=== PATIENT | male | born 2000 | race Caucasian/White ===

== ENCOUNTER 2025-08-14 13:22 | Outpatient (OUT) | payer OTHER, SELFPAY | END 2025-08-14 13:23 | disposition home or self-care (01) | LOC: LAB 13:28 | PROVIDERS: PCP Family Medicine; Visit Provider Family Medicine | DX: Z01.84 Encounter for antibody response examination (principal) | CPT/HCPCS: 36415; 86317 ==

== ENCOUNTER 2025-11-12 12:49 | Outpatient (OUT) | payer OTHER, SELFPAY ==
--- OUTSIDE RECORDS SUMMARY | 2024-11-12 09:30 | XMS_ITS ---
Author Organization The [facility] in [place] Address [address] [place] [address] Care Team Providers Care Dining Room Host/Hostess Name Role Phone Ashwin Lance DO Primary Care Provider Unavailab Celine Ward Unavailable [phone] REASON FOR VISIT MD Goncalves PT Hem Encounters Encounter Location Date Provider Diagnosis [address] [address] 11/12/2024 Celine Gonzalez Plan Of Treatment Next Appt Details Provider Name:Ava Gates , 11/13/2025 03:00:00 PM, [address] [place] [address], [address], Progress Notes * Brett PALENCIA NDOB:1999 (25 yo M)Acc No.[id number]:11/12/2024 UNLOCKED PROGRESS NOTE Progress Notes Patient: Marisol HAIDER Brett Landry :?Celine Phillips M.D.:2000???Age:24 Y ???Sex:MaleDate:4Phone:[phone]:[address] [place], [place]-[address]Pcp:Ashwin Lance DO Subjective: * Chief Complaints: * 1 . MD Goncalves PT Hem. * Medical History: Objective: * Vitals: Assessment: Plan: * Treatment: * * Electronic signature of Celine Gonzalez MD, [id number] on 11/12/2025 at 12:54 PM ESTSign off status: PendingVisit Status:?VOICEMSG (Voice) * Provider: Whitney Phillips M.D. Date: 01/13/2024 Generated for Printing/Faxing/eTransmitting on:?11/12/2025 12:54 PM EST
--- OUTSIDE RECORDS SUMMARY | 2024-11-12 11:15 | XMS_ITS ---
Author Organization The [facility] in [place] Address [address] [place] [address] Care Team Providers Care Process Engineering Intern Name Role Phone Ashwin Lance DO Primary Care Provider Unavailab le Provider, Lab Unavailable [phone] REASON FOR VISIT jma Encounters Encounter Location Date Provider Diagnosis [facility] [address] [place] [address] 11/12/2024 Lab Provider Plan Of Treatment Next Appt Details Provider Name:Ava Whitney Kody , 11/13/2025 03:00:00 PM, [address] [place] [address], [address], Progress Notes * Brett PALENCIA NDOB:1999 (25 yo M)Acc No.[id number]:11/12/2024 UNLOCKED PROGRESS NOTE Progress Note Patient: Brett HENRY :?Lab ProviderDOB:2000???Age:24 Y???Sex: MaleDate:4Phone:[phone]:[address] [place], [place]-[address]Pcp:Abigail Greene In:04:14 PM ESTCheck Out:04:17 PM EST Subjective: * Chief Complaints: * 1 . Jma. * Medical History: Objective: * Vitals: Assessment: Plan: * Treatment: * * Electronic signature of Lab Provider on 11/12/2025 at 12:54 PM ESTSign off status: PendingVisit Status:?CHK (Check Out) * Provider: Jack mcarthur Provider Date: 01/13/2024 Generated for Printing/Faxing/eTransmitting on:?11/12/2025 12:54 PM EST
--- OUTSIDE RECORDS SUMMARY | 2024-12-03 10:00 | XMS_ITS ---
Author Organization The [facility] in [place] Address [address] [place] [address] Care Team Providers Care Program Attendant Name Role Phone Ashwin Lacne DO Primary Care Provider Unavailab Celine Ward Unavailable [phone] REASON FOR VISIT MD TELEHEALTH Encounters Encounter Location Date Provider Diagnosis [address] [address] 12/03/2024 Celine Gonzalez Plan Of Treatment Next Appt Details Provider Name:Ava Gates , 11/13/2025 03:00:00 PM, [address] [place] [address], [phone], Progress Notes * Brett PALENCIA NDOB:1999 (25 yo M)Acc No.[id number]:12/03/2024 UNLOCKED PROGRESS NOTE Progress Notes Patient: Marisol HAIDER Brett Landry :?Celine Phillips M.D.:2000???Age:24 Y ???Sex:MaleDate:12/03/2024Phone:[phone]:[address] [place], [place]-[address]Pcp:Ashwin Lance DO Subjective: * Chief Complaints: * 1 . TELEHEALTH. * Medical History: Objective: * Vitals: Assessment: Plan: * Treatment: * * Electronic signature of Celine Gonzalez MD, [id number] on 11/12/2025 at 12:57 PM ESTSign off status: PendingVisit Status:?PEN (Pending) * Provider: Whitney Phillips M.D. Date: 0 12/03/2024 Generated for Printing/Faxing/eTransmitting on:?11/12/2025 12:57 PM EST
--- OUTSIDE RECORDS SUMMARY | 2025-11-11 10:00 | XMS_ITS ---
Author Organization The [facility] in [place] Address [address] [place] [address] Care Team Providers Care Learning Developer Name Role Phone Ashwin Lance DO Primary Care Provider Unavailab Celine Ward Unavailable [phone] REASON FOR VISIT MD Encounters Encounter Location Date Provider Diagnosis [address] [address] 11/11/2025 Celine Gonzalez Plan Of Treatment Next Appt Details Provider Name:Ava Gates , 11/13/2025 03:00:00 PM, [address] [place] [address], [address], Progress Notes * Brett PALENCIA NDOB:1999 (25 yo M)Acc No.[id number]:11/11/2025 UNLOCKED PROGRESS NOTE Progress Notes Patient: Marisol HAIDER Brett Landry :?Celine Phillips M.D.:2000???Age:25 Y ???Sex:MaleDate:11/11/2025Phone:[phone]:[address] [place], [place]-[address]Pcp:Ashwin Lance DO Subjective: * Chief Complaints: * 1 . MD. * Medical History: Objective: * Vitals: Assessment: Plan: * Treatment: * * Electronic signature of Celine Gonzalez MD, [id number] on 11/12/2025 at 12:54 PM ESTSign off status: PendingVisit Status:?CANC (Cancelled) * Provider: Whitney Phillips M.D. Date: 1 01/12/2025 Generated for Printing/Faxing/eTransmitting on:?11/12/2025 12:54 PM EST
--- OUTSIDE RECORDS SUMMARY | 2025-11-12 12:54 | XMS_ITS | Patient Health Record ---
Author Organization The [facility] in [place] Address [address] [place] [address] Care Team Providers Care Press Feeder Name Role Phone Ashwin Lance DO Primary Care Provider Unavailab le Provider, Lab Unavailable [phone] Celine Gonzalez Unavailable [phone] Results Component Value Reference Range Notes COPY RECEIVED FROM: (Not yet reviewed by provider) Interpretation: Performing Lab: Notes/Report: FASTING:UNKNOWN FASTING: UNKNOWN COPY RECEIVED FROM: [address] [place] [address] [facility] [address] COPY RECEIVED FROM: (Not yet reviewed by provider) Interpretation: Performing Lab: Notes/Report: FASTING:UNKNOWN FASTING: UNKNOWNCOPY RECEIVED FROM: [address] [place] [address] [facility] LUPUS ANTICOAGULANT (Not yet reviewed by provider) Interpretation: Performing Lab:СВЕТЛАНА, [facility] [address] [facility], [facility] CenterXswwGU[address] Avelino Irwin Notes/Report: FASTING:UNKNOWN FASTING: UNKNOWNLUPUS ANTICOAGULANTNOT DETECTED (This link is being provided for informational/ For more information on this test, go to: educational purposes only.) following test results: http://[employer].Al[employer]/faq/IPW41c4 A Lupus Anticoagulant is not detected. This interpretation is based on the PTT-LA TJQBHX25< OR = 40 secDRVVT XMWQOO01< OR = 45 arjYSZX-2-MXINGPUWZXWS IGG,IGA,and IGM (Not yet reviewed by provider) Interpretation: Performing Lab:СВЕТЛАНА, [facility] [address], [place] JiangJqdcBD[address] Avelino Irwin Notes/Report: FASTING:UNKNOWN FASTING: UNKNOWNB2 GLYCOPROTEIN I (IGG)AB<2.0 [facility] immunological classification criteria for clinical event (e.g. arterial or venous thrombosis, drug therapy or aging. b2GPI antibodies greater than the 99th percentile; or educational purposes only.) Value Interpretation For additional information, please refer to http://[employer].AUPEO!.Ooyala/faq/FIF258 APS criteria. Low level antiphospholipid antibodies before retesting to confirm antibody persistence. > or = 20.0 Antibody detected antiphospholipid antibodies (IgM, IgG Cardiolipin or (This link is being provided for informational/ a lupus anticoagulant). International consensus The antiphospholipid antibody syndrome (APS) is a systemic lupus erythematosus (SLE) include testing for ----- isotype IgA, which has yet to be incorporated into < 20.0 Antibody not detected guidelines for APS suggest waiting at least 12 weeks clinical-pathologic correlation that includes a may sometimes be detected in the setting of infection, The [facility] [employer] [facility] morbidity) and persistent positive B2 GLYCOPROTEIN I (IGM)AB<2.0 The [facility] [employer] [facility] a lupus anticoagulant). International consensus antiphospholipid antibodies (IgM, IgG Cardiolipin or > or = 20.0 Antibody detected may sometimes be detected in the setting of infection, http://education.Alcy[employer] Resources/faq/TLT973 Value Interpretation For additional information, please refer to guidelines for APS suggest waiting at least 12 weeks isotype IgA, which has yet to be incorporated into b2GPI antibodies greater than the 99th percentile; or clinical event (e.g. arterial or venous thrombosis, (This link is being provided for informational/ drug therapy or aging. ----- Clinics immunological classification criteria for The antiphospholipid antibody syndrome (APS) is a APS criteria. Low level antiphospholipid antibodies before retesting to confirm antibody persistence. morbidity) and persistent positive clinical-pathologic correlation that includes a educational purposes only.) systemic lupus erythematosus (SLE) include testing for < 20.0 Antibody not detected B2 GLYCOPROTEIN I (IGA)AB<2.0 b2GPI antibodies greater than the 99th percentile; or The antiphospholipid antibody syndrome (APS) is a educational purposes only.) ----- APS criteria. Low level antiphospholipid antibodies drug therapy or aging. Clinics immunological classification criteria for morbidity) and persistent positive before retesting to confirm antibody persistence. http://education.[employer]/faq/KSV803 clinical-pathologic correlation that includes a < 20.0 Antibody not detected systemic lupus erythematosus (SLE) include testing for a lupus anticoagulant). International consensus The [facility] Lupus [employer] Collaborating (This link is being provided for informational/ antiphospholipid antibodies (IgM, IgG Cardiolipin or > or = 20.0 Antibody detected For additional information, please refer to Value Interpretation may sometimes be detected in the setting of infection, guidelines for APS suggest waiting at least 12 weeks clinical event (e.g. arterial or venous thrombosis, isotype IgA, which has yet to be incorporated into ANTI - CARDIOLIPIN (ANTIPHOSPHOLIPID) ,IGG/IGA/IGM (Not yet reviewed by provider) Interpretation: Performing Lab:[facility], [address] [place], [address] Notes/Report: [facility]: [facility] [id number], IgG1.8(10.0 - 40.0) U/mLACA, IgA9.9(14.0 - 20.0) U/mLACA, IgM1.1(10.0 - 40.0) U/mL Reason For Referral No Information Encounters Encounter Location Date Provider Diagnosis [facility] [address] [place] [address] 11/12/2024 Celine Gonzalez [facility] [place] [address]/06/2025[facility] [address] [place] [address]/Lab Provider Plan Of Treatment Pending Test Test Name Order Date ANTI - CARDIOLIPIN (ANTIPHOSPHOLIPID) ,I GG/IGA/IGM 11/12/2024 WOCG-7-GEHWOOAYEDIE IGG,IGA,and IGM 10/28 LUPUS ANTICOAGULANT 11/12/2024 COPY RECEIVED FROM: 11/12/2024 COPY RECEIVED FROM: 11/12/2024 Next Appt Details Provider Name:Moshehector Devonte Gates , 11/13/2025 03:00:00 PM, [address] [place] [address], [place], [address], Insurance Providers Payer Name Payer Address Payer Phone Subscriber Number Group Number Insured Name Patient Relationship to Insured Coverage Start Date Coverage End Date MMO [employer] [address] [place] [address] [phone] [id number] Brett Palencia Self - patient is the insured 4
--- OUTSIDE RECORDS SUMMARY | 2025-11-12 12:54 | XMS_ITS | Clinical Summary ---
Author Organization [facility] Dealised [facility] tem Address [id number] [address] [place] [address] Care Team Providers Care Watch And Clock Repair Clerk Name Role Phone Ashwin Lance DO Primary Care Provider [phone] Allergies No known active allergies Medications MedicationSigDispense QuantityRefillsLast FilledStart DateEnd DateStatus MULTIVITAMIN (MULTIPLE VITAMINS ORAL) Take 2 tablets by mouth in the morning.Active ibuprofen (ADVIL,MOTRIN) 400 mg tablet Take 1 tablet (400 mg total) by mouth every 6 (six) hours as needed for pain for up to 20 doses. 20 tablet 01/08/2018Active acidophilus-pectin, citrus 25 million cell -100 mg tablet Take 1 tablet by mouth daily with breakfast.Active omega-3 fatty acids-fish oil (FISH OIL) 300-1,000 mg capsule Take 2 capsules (2 g total) by mouth in the morning.Active Active Problems ProblemNoted DateDiagnosed DatePatellar nfvmdpigdaz42/14/2017Factor 5 Leiden mutation, heterozygousMTHFR (methylene THF reductase) deficiency and homocystinuriaHypercoagulability due to prothrombin II mutationCP (cerebral palsy) Overview (07/12/2017): RT SIDED Encounters DateTypeDepartmentCare CkbqPdruategrel35/16/2025 10:30 AM EDTOffice Visit [facility] [address] [place] [address] Fabiola Nina MD MTHFR (methylene THF reductase) deficiency and homocystinuria (Primary Dx); Hypercoagulability due to prothrombin II mutation; Factor 5 Leiden mutation, heterozygousfrom Last 3 Months Immunizations ImmunizationAdministration DatesNext AajCPpT9805/23/2007,04/05/2003IPV05/23/2007, 09/23/2003MMR05/23/2007Tdap05/23/2014 Family History Medical HistoryRelationNameCommentsOtherFatherCHADUNKNOWNCancerMaternal GrandfatherNo Known ProblemsMotherCHRISTINEOtherPaternal GrandmotherUNKNOWNNo Known ProblemsSisterAlaynaRelationNameStatusCommentsFatherCHADAliveMaternal GrandfatherAliveMaternal GrandmotherDeceasedMotherCHRISTINEAlivePaternal GrandfatherAlivePaternal GrandmotherDeceasedSisterAlaynaAlive Social History Tobacco UseTypesPacks/DayYears UsedDateSmoking Tobacco: NeverPassive Smoke Exposure: CurrentSmokeless Tobacco: Never Tobacco Cessation:Counseling Given: No Alcohol UseStandard Drinks/WeekCommentsYes0 (1 standard drink = 0.6 oz pure alcohol)soicalPHQ-2AnswerDate RecordedTotal Wirln1974ChildcareAnswerDate MgmxhtdjOhmaqtnvuBaaglcv77/12/2019EmploymentAnswerDate RecordedEmploymentUnknown 05/09/2019Hunger ScreeningAnswerDate RecordedWithin the past 12 months we worried whether our food would run out before we got money to buy more.Never True08/13/2025Within the past 12 months the food we bought just didn't last and we didn't have money to get more.Never True08/13/2025Purpose - LifeAnswerDate RecordedPurpose and direction in xgotHwwjaoc28/11/2021EducationAnswerDate RecordedWhat is the highest level of school you have completed or the highest degree you have received?Bachelor's degree (e.g., BA, AB, BS)04/16/2024Sex and Gender InformationValueDate RecordedSex Assigned at BirthNot on fileLegal Sex Male07/03/2015 12:00 PM EDTGender IdentityNot on fileSexual OrientationNot on fileOccupationIndustryJob Start DateJob End Datenot employed-studentNot on file Not on fileNot on file Last Filed Vital Signs Vital SignReadingTime TakenCommentsBlood Fzzgpdmb464/7408/13/2025 10:22 AM EDT after 3 attempts on each bcjmmruevXcxbk5694/16/2025 10:22 AM QZITnbzeagqdym34.6 ??C (97.9 ??F)01/08/2018 9:32 AM ESTRespiratory Tazw546601/08/2018 9:32 AM EST Oxygen Pwflbkbgeb07%01/08/2018 10:07 AM ESTInhaled Oxygen Concentration--Weight 98.8 kg (217 lb 13 oz)08/13/2025 10:22 AM UVKZpmjcm512.6 cm (5' 6 )08/13/2025 10:22 AM EDTBody Mass Index35.16008/13/2025 10:22 AM EDT Plan of Treatment Health MaintenanceDue DateLast DoneCommentsAdult BMI Follow Up Plan2019 Depression Vqjxxhgbl59/OVID-19 Vaccine ( - season) /, 04/14/2021Influenza Xorghwi95/, 10/16/2009dult BMI Olbnrcndw45/Tobacco Slijvusmr54/16/2026 08/13/2025DTaP,Tdap and Td Vaccines (8 - Td or Tdap), 05/23/2014, 05/23/2007, Additional history exists Medical Devices Not on file Insurance MemberSubscriberPlan / Payer (Effective 2015-Present)Name:Brett Palencia Relation to Subscriber:ChildName:CABRERA LARSON Date of :1977 Address: [address] [place] [address] Payer ID:Not on file Type:Not on file Address: [address] [place] [id number] MemberSubscriberPlan / Payer (Effective 2015-Present)Name:Brett Palencia Relation to Subscriber:ChildName:CABRERA LARSON Date of :1977 Address: [address] [place] [address] Payer ID:Not on file Type:Not on file Address: [address] [place] [id number] Care Teams Team MemberRelationshipSpecialtyStart DateEnd Date Ashwin Lnace DO [address] [place] [address] [facility]04/11/13
--- OUTSIDE RECORDS SUMMARY | 2025-11-12 12:56 | XMS_ITS | Clinical Summary ---
Author Organization [facility] Address [address] [place] [address] Care Team Providers Care Bee Producer Name Role Phone Unavailable Primary Care Provider Unavailabl e Social History Tobacco UseTypesPacks/DayYears UsedDateSmoking Tobacco: Never AssessedSex and Gender InformationValueDate RecordedSex Assigned at BirthNot on fileLegal Sex Male02/09/2023 7:25 PM EDTGender CjrepcirKaze15/15/2023 7:25 PM EDTSexual OrientationNot on file Last Filed Vital Signs Vital SignReadingTime TakenCommentsBlood Llrencfg523/7411/14/2018 12:00 PM EST Pulse--Temperature--Respiratory Rate--Oxygen Saturation--Inhaled Oxygen Concentration--Kfldat77.3 kg (161 lb 9.6 oz)11/14/2018 12:00 PM JXKFmzllz093.7 cm (5' 5.25 )11/14/2018 12:00 PM ESTBody Mass Index26.6911/14/2018 12:00 PM EST Plan of Treatment Not on file Insurance
--- OUTSIDE RECORDS SUMMARY | 2025-11-12 12:56 | XMS_ITS | Clinical Summary ---
Author Organization [facility] Address [address] [place] [address] Care Team Providers Care Business Manager [employer] Name Role Phone Girish Hsieh MD Primary Care Provider [phone] Medications MedicationSigDispense QuantityRefillsLast FilledStart DateEnd DateStatus VITAMIN B12 50MCG TABLET Take one(1) tablet daily.Active VITAMIN B6 50MG TABLET Take one(1) tablet daily.Active FOLIC ACID 20MG CAPSULE 2 1/2 tablets by mouth once nmsdz80301/15/2003Active Active Problems ProblemNoted DateDiagnosed DateUnspecified cerebral artery occlusion with cerebral himvymjynx56/07/2003Genetic anomalies of hvaflhphko99/07/2003 Social History Tobacco UseTypesPacks/DayYears UsedDateSmoking Tobacco: Never AssessedSex and Gender InformationValueDate RecordedSex Assigned at BirthNot on fileLegal Sex Male10/29/2012 10:01 AM ESTGender IdentityNot on fileSexual OrientationNot on file Last Filed Vital Signs Vital SignReadingTime TakenCommentsBlood Fsugvqcy160/7011/14/2003 12:16 PM EST Oqlwp41820/18/2003 12:16 PM ESTTemperature--Respiratory Rate--Oxygen Saturation 99%11/14/2003 12:16 PM ESTInhaled Oxygen Concentration--Fjqgdm84.8 kg (30 lb 6.8 oz)11/14/2003 12:16 PM RZHHgbuyt29.3 cm (2' 11.55 )11/14/2003 12:16 PM ESTBody Mass Index16.9311/14/2003 12:16 PM EST Plan of Treatment Health MaintenanceDue DateLast DoneCommentsPeds To Adult Transition Initial Srhxrpejwg77/01/2013Peds To Adult Transition Annual Fvngqcpptl68/01/2015HPV Vaccine (1 - Male 3-dose series)2016Anxiety Pglpgbanj53/01/2019Depression Lmkujfyhs16/01/2019HIV Okgkylfhy35/01/2019Hepatitis C Rprnwkqys21/01/2019 DTaP,Tdap,Td Vaccine (1 - Tdap)2020Hepatitis B Vaccine (1 of 3 - 19+ 3- dose series)2020Covid-19 Vaccine (1 - 2024- season)2025Influenza Vaccine (#1)2025 Care Teams Team MemberRelationshipSpecialtyStart [place] [address] [place] [address] PCP - Zdoggkf43/7/03
--- OUTSIDE RECORDS SUMMARY | 2025-11-12 12:56 | XMS_ITS | Clinical Summary ---
Author Organization [facility] Address [address] [place] [address] Care Team Providers Care Ad Trafficker Name Role Phone Unavailable Primary Care Provider Unavailabl e Social History Tobacco UseTypesPacks/DayYears UsedDateSmoking Tobacco: Never AssessedSex and Gender InformationValueDate RecordedSex Assigned at BirthNot on fileLegal Sex Male12/10/2020 3:12 PM ESTGender IdentityNot on fileSexual OrientationNot on file Plan of Treatment Not on file Medical Devices Not on file
== END 2025-11-12 12:50 | disposition home or self-care (01) ==
LOC: LAB 12:51
PROVIDERS: PCP Family Medicine; Visit Provider Family Medicine
DX: Z01.84 Encounter for antibody response examination (principal)
CPT/HCPCS: 36415; 86317